=== PATIENT | male | born 2000 | race Caucasian/White ===

== ENCOUNTER 2023-06-01 18:11 | Emergency (ER) | payer SELFPAY ==
[2023-06-01 19:56] LABS: Absolute Lymphocytes (CBC) 3.8 K/uL (0.7-4.9); Lymphocytes % 41.4 % (15.3-44.8); MCV 84.5 fL (80-100); MPV 6.8 fL (7.6-11.3); Platelets 369 thou/uL (152-406); RBC Red Blood Cell Count 4.97 M/uL (4.33-5.43)
[2023-06-01 19:57] LABS: Protime INR 1.02
[2023-06-01 20:11] LABS: Albumin 4.3 g/dL (3.4-5.0); Bilirubin Total 0.6 mg/dL (0.2-1.0); Potassium 3.6 mEq/L (3.5-5.1)
[2023-06-01] MEDS ORDERED: NA CHLORIDE 0.9% 1,000 ML ONE (20:21)
--- NOTE | 2023-06-01 20:45 | RAD REPORT ---
EXAM DESCRIPTION: CT - Abdomen Pelvis W Contrast - 06/01/2023 7:58 pm CLINICAL HISTORY: lower abdomen pain, rectal bleeding COMPARISON: No comparisons TECHNIQUE: Thin cut axial CT imaging of the abdomen and pelvis was performed following intravenous a dministration of 100 mL Isovue 300. Multiplanar reformats were generated and reviewed. All CT scans are performed using dose optimization technique as appropriate and may include automated exposure control or mA/KV adjustment according to patient size. FINDINGS: Numerous bilateral peripheral nodules not exceeding 1 cm com are some showing central calc ification, as well as few more centrally located nodules largest measuring 1 cm in the left lower lob e seen on axial image 13. These are indeterminate. The liver, spleen, and pancreas show no suspicious findings. Gallbladder and biliary tree are also wi thout suspicious finding. Symmetric renal function is seen with no hydronephrosis or suspicious renal mass. No dilated bowel loops or bowel wall thickening. No free air, free fluid or inflammatory stranding. N o hernia, mass or bulky lymphadenopathy. The urinary bladder is decompressed, limiting evaluation. No suspicious bony findings. Right L5 pars interarticularis defect. IMPRESSION: No acute intra-abdominal process. Numerous bilateral pulmonary nodules as above, some showing central calcifications suggestive of kayy gn granulomas. A follow-up CT chest in 1-3 months is recommended for further evaluation.
--- NOTE | 2023-06-01 21:07 | ER ---
Nurse's Notes [facility] Name: Amish Brady Age: 23 yrs Sex: Male : 2000 Arrival Date: 06/01/2023 Time: 18:11 Bed 17 Private MD: Diagnosis: Anal fissure, unspecified Presentation: 06/01 18:38 Chief complaint: Patient states: when i wiped it was covered in blood , had it happened iw a couple months ago but it went away , there was blood on the stool today , it was bright red. Coronavirus screen: At this time, the client does not indicate any symptoms associated with coronavirus-19. Ebola Screen: Patient negative for fever greater than or equal to 101.5 degrees Fahrenheit, and additional compatible Ebola Virus Disease symptoms Patient denies exposure to infectious person. Patient denies travel to an Ebola-affected area in the 21 days before illness onset. No symptoms or risks identified at this time. Initial Sepsis Screen: Does the patient meet any 2 criteria? No. Patient's initial sepsis screen is negative. Does the patient have a suspected source of infection? No. Patient's initial sepsis screen is negative. Risk Assessment: Do you want to hurt yourself or someone else? Patient reports no desire to harm self or others. Onset of symptoms was June 01, 2023. 18:38 Method Of Arrival: Ambulatory iw 18:38 Acuity: LINDEN 3 iw Historical: - Allergies: 18:39 No Known Allergies; iw - Home Meds: 18:39 None [Active]; iw - PMHx: 18:39 None; iw - PSHx: 18:39 None; iw - Immunization history:: Adult Immunizations. - Social history:: Smoking status: Patient denies any tobacco usage or history of. Screenin:30 [facility] ED Fall Risk Assessment (Adult) History of falling in the last 3 months, jb4 including since admission No falls in past 3 months (0 pts) Confusion or Disorientation No (0 pts) Score/Fall Risk Level 0 - 2 = Low Risk Oriented to surroundings, Maintained a safe environment. Abuse screen: Denies threats or abuse. Nutritional screening: No deficits noted. Tuberculosis screening: No symptoms or risk factors identified. Assessment: 19:45 General: Appears in no apparent distress. comfortable, Behavior is calm, cooperative, jb4 appropriate for age. Pain: Denies pain. Neuro: Level of Consciousness is awake, alert, obeys commands, Oriented to person, place, time, situation. Cardiovascular: Patient's skin is warm and dry. Respiratory: Airway is patent Respiratory effort is even, unlabored, Respiratory pattern is regular, symmetrical. GI: Reports rectal bleeding. : No signs and/or symptoms were reported regarding the genitourinary system. EENT: No signs and/or symptoms were reported regarding the EENT system. Derm: Skin is intact, Skin is pink, warm \T\ dry. Musculoskeletal: Circulation, motion, and sensation intact. Range of motion: intact in all extremities. 20:30 Reassessment: Patient appears in no apparent distress at this time. Patient and/or jb4 family updated on plan of care and expected duration. Pain level reassessed. Patient is alert, oriented x 3, equal unlabored respirations, skin warm/dry/pink. Vital Signs: 18:38 BP 134 / 69; Pulse 83; Resp 16; Temp 98.4; Pulse Ox 98% on R/A; Weight 114.76 kg; iw Height 5 ft. 10 in. ; 18:38 Body Mass Index 36.30 (114.76 kg, 177.8 cm) iw ED Course: 18:14 Patient arrived in ED. im 18:15 Alton Reyes PA is PHCP. cp 18:15 Von Gamble DO is Attending Physician. cp 18:39 Triage completed. iw 18:40 Arm band placed on. iw 19:59 CT Abd/Pelvis - IV Contrast Only In Process Unspecified. EDMS 20:13 Grady Early, RN is Primary Nurse. jb4 20:30 Patient has correct armband on for positive identification. Bed in low position. Call jb4 light in reach. Side rails up X 1. Client placed on continuous cardiac and pulse oximetry monitoring. NIBP monitoring applied. 21:04 William Aguilar MD is Referral Physician. cp 21:24 No provider procedures requiring assistance completed. IV discontinued, intact, jb4 bleeding controlled, No redness/swelling at site. Pressure dressing applied. Administered Medications: 20:23 Drug: NS 0.9% IV 1000 ml Route: IV; Rate: 1 bolus; Site: right antecubital; jb4 Medication: 20:30 VIS not applicable for this client. jb4 Outcome: 21:07 Discharge ordered by . hamida 21:24 Discharged to home ambulatory. jb4 21:24 Condition: stable 21:24 Discharge instructions given to patient, Instructed on discharge instructions, follow up and referral plans. Demonstrated understanding of instructions, follow-up care. 21:24 Patient left the ED. jb4 Signatures: Dispatcher [employer] EDNany Murphy RN RN iw Page, Corey, PA PA cp Bryson, James, RN RN jb4 Lazara Barrios
--- NOTE | 2023-06-01 21:07 | EDPHYS ---
Physician Documentation [facility] Name: Amish Brady Age: 23 yrs Sex: Male : 2000 Arrival Date: 06/01/2023 Time: 18:11 Bed 17 Private MD: ED Physician Von Gamble HPI: 06/01 18:50 This 23 yrs old Male presents to ER via Ambulatory with complaints of Rectal Bleeding. cp 18:50 The patient presents to the emergency department with bleeding from the rectum/anus, cp that is moderate. Onset: The symptoms/episode began/occurred today. Context: the patient noted blood on stool and when he wiped after bowel movement today. reports similar episode about 1 week ago. c/o lower abdomen "discomfort". Associate signs and symptoms: Pertinent negatives: constipation, diarrhea, fever. Historical: - Allergies: 18:39 No Known Allergies; iw - Home Meds: 18:39 None [Active]; iw - PMHx: 18:39 None; iw - PSHx: 18:39 None; iw - Immunization history:: Adult Immunizations. - Social history:: Smoking status: Patient denies any tobacco usage or history of. ROS: 18:55 Constitutional: Negative for body aches, chills, fever, poor PO intake. cp 18:55 Eyes: Negative for injury, pain, redness, and discharge. cp 18:55 ENT: Negative for drainage from ear(s), ear pain, sore throat, difficulty swallowing, difficulty handling secretions. 18:55 Cardiovascular: Negative for chest pain, edema, palpitations. 18:55 Respiratory: Negative for cough, shortness of breath, wheezing. 18:55 Abdomen/GI: Positive for abdominal pain, rectal bleeding, Negative for vomiting, diarrhea, constipation, black/tarry stool, rectal pain. 18:55 Neuro: Negative for dizziness, headache, syncope, near syncope, weakness. 18:55 All other systems are negative. Exam: 19:00 Constitutional: The patient appears in no acute distress, alert, awake, comfortable, cp non-toxic, well developed, well nourished, obese. 19:00 Head/Face: Normocephalic, atraumatic. cp 19:00 Eyes: Periorbital structures: appear normal, Conjunctiva: normal, no exudate, no injection, Sclera: no appreciated abnormality, Lids and lashes: appear normal, bilaterally. 19:00 ENT: External ear(s): are unremarkable, Nose: is normal, Mouth: Lips: moist, Oral mucosa: pink and intact, moist, Posterior pharynx: is normal, airway is patent, no erythema, no exudate. 19:00 Chest/axilla: Inspection: normal. 19:00 Cardiovascular: Rate: normal, Rhythm: regular. 19:00 Respiratory: the patient does not display signs of respiratory distress, Respirations: normal, no use of accessory muscles, no retractions, labored breathing, is not present. 19:00 Abdomen/GI: Inspection: abdomen appears normal, Bowel sounds: active, all quadrants, Palpation: soft, in all quadrants, mild abdominal tenderness, in the right lower quadrant and left lower quadrant, rebound tenderness, is not appreciated, involuntary guarding, is not appreciated, Rectal exam: hemorrhoid(s), are not appreciated, small fissure noted at 8 o'clock position with scant bleeding noted. 19:00 Back: pain, is absent, ROM is normal. Vital Signs: 18:38 BP 134 / 69; Pulse 83; Resp 16; Temp 98.4; Pulse Ox 98% on R/A; Weight 114.76 kg; iw Height 5 ft. 10 in. ; 18:38 Body Mass Index 36.30 (114.76 kg, 177.8 cm) iw MDM: 18:43 Patient medically screened. cp 20:00 Differential diagnosis: hemorrhoids, fissure, abscess, diverticulitis, colitis. cp 21:06 Data reviewed: vital signs, nurses notes, lab test result(s), radiologic studies. cp 21:06 Consideration of Admission/Observation Escalation of care including cp admission/observation considered. Counseling: I had a detailed discussion with the patient and/or guardian regarding the historical points, exam findings, and any diagnostic results supporting the discharge/admit diagnosis, lab results, radiology results, the need for outpatient follow up, a blood bank technologist, to return to the emergency department if symptoms worsen or persist or if there are any questions or concerns that arise at home. Special discussion: Based on the patient's Hx, exam, and Dx evaluation, there is no indication for emergent surgery or inpatient Tx. It is understood by the patient/guardian that if the Sx's persist or worsen they need to return immediately for re-evaluation. 06/01 18:44 Order name: CBC with Diff; Complete Time: 21:03 cp 06/01 21:03 Interpretation: Normal except: MPV 6.8. cp 06/01 18:44 Order name: CMP; Complete Time: 21:03 cp 06/01 21:03 Interpretation: Normal except: BUN 19. cp 06/01 18:44 Order name: Lipase; Complete Time: 21:03 cp 06/01 18:44 Order name: PT-INR; Complete Time: 21:03 cp 06/01 18:44 Order name: CT Abd/Pelvis - IV Contrast Only; Complete Time: 21:03 cp 06/01 18:44 Order name: IV Saline Lock; Complete Time: 19:49 cp 06/01 18:44 Order name: Labs collected and sent; Complete Time: 19:49 cp 06/01 19:51 Order name: Misc. Order: have patient change into gown; Complete Time: 19:52 cp Administered Medications: 20:23 Drug: NS 0.9% IV 1000 ml Route: IV; Rate: 1 bolus; Site: right antecubital; jb4 Disposition Summary: 06/01/23 21:07 Discharge Ordered Location: Home cp Problem: new cp Symptoms: are unchanged cp Condition: Stable cp Diagnosis - Anal fissure, unspecified cp Followup: cp - With: William Aguilar MD - When: 2 - 3 days - Reason: Recheck today's complaints Discharge Instructions: - Discharge Summary Sheet cp - Anal Fissure, Adult cp - Rectal Bleeding cp Forms: - Medication Reconciliation Form cp - Thank You Letter cp - Antibiotic Education cp - Prescription Opioid Use cp - Patient Portal Instructions cp - Leadership Thank You Letter cp Addendum: 06/03/2023 13:10 Co-signature as Attending Physician, Von Gamble DO I was immediately available on-site m s3 in the Emergency Department for consultation in the care of the patient. Signatures: Dispatcher [employer] Nany Ye, RN RN iw Alton Reyes PA PA Grady Calzada RN RN jb4 Von Gamble DO DO ms3
[2023-06-01 22:41] VITALS: BP 134/69; TEMP 98.4; O2SAT 98
== END 2023-06-01 21:24 | disposition home or self-care (01) ==
LOC: ER 18:11
DX: K60.2 Anal fissure, unspecified (principal)
CPT/HCPCS: 36415; 74177; 80053; 82565; 83690; 85025; 85610; 99284; J7030